=== PATIENT | female | born 1960 | race Caucasian/White ===

== ENCOUNTER → 2020-02-20 | Outpatient (CLI) | payer OTHER | LOC: HEART 5 13:20 | DX: R60.9 Edema, unspecified (principal); M79.606 Pain in leg, unspecified; I83.93 Asymptomatic varicose veins of bilateral lower extremities | CPT/HCPCS: 93970 ==

== ENCOUNTER → 2020-07-23 | Outpatient (CLI) | payer OTHER | LOC: MAMO 14:14 | DX: Z12.31 Encounter for screening mammogram for malignant neoplasm of breast (principal) | CPT/HCPCS: 77063; 77067 ==